=== PATIENT | female | born 1970 ===

== ENCOUNTER 2024-11-30 05:15 | Day surgery (SDC) | payer OTHER ==
[~2024-11-30 05:15] MED LIST: ASA81 MG PO; FOSAMAX70 MG PO; SIMVASTATIN5 MG; SYNTHROID75 MCG PO
[2024-11-30] MEDS ORDERED: CEFAZOLIN SODIUM 1,000 MG VIAL ONE (06:53)
[2024-11-30] MEDS ORDERED: BUPIVACAINE HCL/MPF 0.5% 30ML VIAL ONE ×2 (07:07→07:21)
[2024-11-30] MEDS ORDERED: POVIDONE-IODINE 118 ML BOTT TOP ONE (07:07)
[2024-11-30] MEDS ORDERED: CHLORHEXIDINE GLUCONATE 120 ML BOTTLE TOP ONE (07:07)
[2024-11-30] MEDS ORDERED: SUGAMMADEX SODIUM 200 MG/2 ML VIAL IV ONE (09:08)
[2024-11-30] MEDS ORDERED: CELEBREX200MG PO (10:17)
[2024-11-30] MEDS ORDERED: ACETAMINOPHEN-1 EAC2 PO (10:20)
[2024-11-30] MEDS ORDERED: MORPHINE SULFATE 4 MG/ML VIAL IV ONE (12:15)
== END 2024-11-30 13:20 | disposition home or self-care (01) ==
LOC: CIR.AMB 05:15
PROVIDERS: ATTEND Obstetrics & Gynecology
DX: N84.0 Polyp of corpus uteri (principal); D27.0 Benign neoplasm of right ovary